=== PATIENT | male | born 1940 | race Caucasian/White ===

== ENCOUNTER 2019-01-15 14:20 | Emergency (ER) | payer OTHER ==
[2019-01-15 17:55] LABS: Potassium 3.7 mmol/L (3.5-5.1)
[2019-01-15 18:17] LABS: Urine Blood 3+ (NEG); Urine Glucose 2+ (NEG); Urine Protein 2+ (NEG); Urine pH 7.5 (5.0-7.0)
[2019-01-15] MEDS ORDERED: cloNIDine HCL 0.1 MG TAB ONE (18:24)
--- NOTE | 2019-01-15 19:31 | ER ---
Nurse's Notes [facility] Name: Pb Hicks Jr Age: 78 yrs Sex: Male : 1940 Arrival Date: 01/15/2019 Time: 14:23 Bed 20 Private MD: Diagnosis: Hematuria;Renal Insufficiency Presentation: 01/15 14:37 Presenting complaint: Patient states: 'I had a sonogram of my kidney and the noticed I aj1 can't empty my bladder and my urine is backing up into my kidneys. Dr. Whitman did blood work and my numbers kept going up, so he told me to come to the emergency room to have a catheter put in" Dr. Whitman spoke with ER staff via telephone and stated that he would like to be called and updated prior to patient's discharge. Transition of care: patient was not received from another setting of care. Onset of symptoms was January 15, 2019. Risk Assessment: Do you want to hurt yourself or someone else? Patient reports no desire to harm self or others. Initial Sepsis Screen: Does the patient meet any 2 criteria? No. Patient's initial sepsis screen is negative. Does the patient have a suspected source of infection? No. Patient's initial sepsis screen is negative. Care prior to arrival: None. 14:37 Method Of Arrival: Ambulatory [facility] 14:37 Acuity: SHAYLEE 3 aj1 Triage Assessment: 14:41 General: Appears in no apparent distress. uncomfortable, Behavior is calm, cooperative, aj1 appropriate for age. Pain: Denies pain. Neuro: Level of Consciousness is awake, alert, obeys commands. Cardiovascular: Patient's skin is warm and dry. Historical: - Allergies: 14:41 No Known Allergies; aj1 - PMHx: 14:41 CVA; Diabetes - NIDDM; enlarged prostate; Hypertension; Kidney stones; aj1 - Immunization history:: Flu vaccine is up to date. - Social history:: Smoking status: Patient/guardian denies using tobacco. - Ebola Screening: : Patient denies travel to an Ebola-affected area in the 21 days before illness onset. Screenin:10 Abuse screen: Denies threats or abuse. Denies injuries from another. Nutritional wh screening: No deficits noted. Tuberculosis screening: No symptoms or risk factors identified. Fall Risk None identified. Assessment: 15:00 General: Appears in no apparent distress. Behavior is calm, cooperative, appropriate wh for age. Pain: Denies pain. Neuro: Level of Consciousness is awake, alert, obeys commands, Oriented to person, place, time, situation, Appropriate for age. Cardiovascular: Heart tones S1 S2. Respiratory: Airway is patent Respiratory effort is even, unlabored, Respiratory pattern is regular, symmetrical, Breath sounds are clear bilaterally. GI: Abdomen is flat, non-distended. : Reports inability to void. EENT: No signs and/or symptoms were reported regarding the EENT system. Derm: Skin is intact, is healthy with good turgor, Skin is pink, warm \\T\\ dry. normal. Musculoskeletal: Circulation, motion, and sensation intact. 16:20 Reassessment: Patient appears in no apparent distress at this time. No changes from previously documented assessment. Patient and/or family updated on plan of care and expected duration. Pain level reassessed. Patient is alert, oriented x 3, equal unlabored respirations, skin warm/dry/pink. 17:30 Reassessment: Patient appears in no apparent distress at this time. No changes from previously documented assessment. Patient and/or family updated on plan of care and expected duration. Pain level reassessed. Patient is alert, oriented x 3, equal unlabored respirations, skin warm/dry/pink. 18:45 Reassessment: Patient appears in no apparent distress at this time. No changes from previously documented assessment. Patient and/or family updated on plan of care and expected duration. Pain level reassessed. Patient is alert, oriented x 3, equal unlabored respirations, skin warm/dry/pink. 19:20 Reassessment: Patient appears in no apparent distress at this time. Patient and/or cc3 family updated on plan of care and expected duration. Pain level reassessed. Patient is alert, oriented x 3, equal unlabored respirations, skin warm/dry/pink. Received this male patient from morning shift [facility] [employer]. With IV cannula gauge 20 at the right ACV saline locked. Noted with coude catheter Fr. 16 attached to urine drainage bag with bloody 600 mL urine output. Patient denies pain at this time. Patient states feeling better. Patient states symptoms have improved. General: Appears in no apparent distress. comfortable, Behavior is calm, cooperative, appropriate for age. Pain: Denies pain. Neuro: Level of Consciousness is awake, alert, obeys commands, Oriented to person, place, time, situation, Appropriate for age. Cardiovascular: Denies chest pain, Heart tones S1 S2 present Capillary refill < 3 seconds in bilateral fingers Patient's skin is warm and dry. Respiratory: Airway is patent Respiratory effort is even, unlabored, Respiratory pattern is regular, symmetrical, Breath sounds are clear bilaterally. GI: Abdomen is flat, non-distended, Bowel sounds present X 4 quads. : coude catheter Fr. 16 with bloody urine output Urine is patito blood, Genitalia appear normal. EENT: No signs and/or symptoms were reported regarding the EENT system. Derm: Skin is intact, is healthy with good turgor, Skin is pink, warm \\T\\ dry. normal. Musculoskeletal: Circulation, motion, and sensation intact. Range of motion: intact in all extremities. 20:00 Reassessment: Patient appears in no apparent distress at this time. Patient and/or cc3 family updated on plan of care and expected duration. Pain level reassessed. Patient is alert, oriented x 3, equal unlabored respirations, skin warm/dry/pink. SOLITARIO Nunes discharged the patient home with lab workup request to be done as outpatient. SOLITARIO Nunes said to discharge the patient home with the urine grijalva's catheter on, changed the urine bag to a drainage leg bag and taught the patient and his on how to drain urine from there. IV cannula removed and patient left ER vitally stable and ambulatory with his . No valuables left in the patient's room. Patient denies pain at this time. Patient states feeling better. Patient states symptoms have improved. Vital Signs: 14:41 BP 157 / 85; Pulse 73; Resp 18; Temp 98.4; Pulse Ox 97% on R/A; Weight 86.18 kg (R); aj1 Height 5 ft. 11 in. (180.34 cm) (R); Pain 0/10; 15:00 BP 137 / 95; Pulse 79; Resp 18; Temp 98.1(O); Pulse Ox 100% on R/A; mh5 17:00 BP 170 / 89; Pulse 69; Resp 18; Pulse Ox 99% on R/A; mh5 18:01 BP 216 / 106; Pulse 63; Resp 17; Temp 98.7(O); Pulse Ox 98% on R/A; mh5 18:53 BP 187 / 89; Pulse 61; Resp 17; Temp 98.2(O); Pulse Ox 100% ; mh5 19:30 BP 143 / 89; Pulse 67; Resp 16 S; Temp 98.7(O); Pulse Ox 96% on R/A; Pain 0/10; cc3 14:41 Body Mass Index 26.50 (86.18 kg, 180.34 cm) aj1 ED Course: 14:23 Patient arrived in ED. as 14:40 Triage completed. aj1 14:41 Arm band placed on Patient placed in waiting room, Patient notified of wait time. aj1 15:24 rBandon Saldivar FNP-C is PHCP. la 15:25 Pancho Newton MD is Attending Physician. la1 16:13 BLADDER SCANNER READS 999 ML. 5 16:14 Patient has correct armband on for positive identification. Placed in gown. Bed in low mh5 position. Call light in reach. Side rails up X 1. Adult w/ patient. Warm blanket given. Pulse ox on. NIBP on. 16:20 Coud inserted, using sterile technique, 16 Fr. Returned clear yellow urine. To gravity drainage. 16:32 Promise Olson is Primary Nurse. 16:45 Inserted saline lock: 20 gauge in right antecubital area, using aseptic technique. Blood collected. 18:12 PHCP role handed off by Brandon Saldivar FNP-C [facility] 18:12 Kei Nunes PA is PHCP. [facility] 20:00 No provider procedures requiring assistance completed. IV discontinued, intact, cc3 bleeding controlled, No redness/swelling at site. Pressure dressing applied. Administered Medications: 18:25 Drug: cloNIDine 0.1 mg Route: PO; 19:30 Follow up: Response: No adverse reaction; Blood pressure is lowered cc3 Outcome: 19:31 Discharge ordered by . [facility] 20:00 Discharged to home ambulatory, with family. cc3 20:00 Condition: stable 20:00 Discharge instructions given to patient, family, Instructed on discharge instructions, follow up and referral plans. Demonstrated understanding of instructions, follow-up care. 20:11 Patient left the ED. cc3 Signatures: Brenda French RN RN aj1 Kei Nunes PA PA jmm Martinez, Brandon Means, ADDING MACHINE OPERATOR-C ADDING MACHINE OPERATOR-Cla1 Alma Rosa Hendrix [facility] Promise Olson Charlene cc3
--- NOTE | 2019-01-15 19:32 | EDPHYS ---
Physician Documentation [facility] Name: Pb Hicks Jr Age: 78 yrs Sex: Male : 1940 Arrival Date: 01/15/2019 Time: 14:23 Bed 20 Private MD: ED Physician Pancho Newton HPI: 01/15 15:41 This 78 yrs old Male presents to ER via Ambulatory with complaints of Needs la1 Urinary Catheter Replacement. 15:41 Onset: The symptoms/episode began/occurred 1 day(s) ago. Associated signs and symptoms: la1 Pertinent negatives: abdominal pain, chest pain, sore throat, vomiting. Modifying factors: The patient symptoms are alleviated by nothing, the patient symptoms are aggravated by nothing. The patient has been recently seen by a physician: Dr. Whitman. Pt was seen at Dr. perkins for labs, has had an elevated creatinine, had an US of the kidneys and they told him his bladder was full and he needed to empty his bladder and then come back in the room, Pt urinated but still had urine in bladder per US tech. Cr is worse with Dr. alcazar who called and requested pt have catheter placed and is contacted after placement. Historical: - Allergies: 14:41 No Known Allergies; aj1 - PMHx: 14:41 CVA; Diabetes - NIDDM; enlarged prostate; Hypertension; Kidney stones; aj1 - Immunization history:: Flu vaccine is up to date. - Social history:: Smoking status: Patient/guardian denies using tobacco. - Ebola Screening: : Patient denies travel to an Ebola-affected area in the 21 days before illness onset. ROS: 15:46 Constitutional: Negative for fever, chills, and weight loss, Neck: Negative for injury, la1 pain, and swelling, Cardiovascular: Negative for chest pain, palpitations, and edema, Respiratory: Negative for shortness of breath, cough, wheezing, and pleuritic chest pain, Abdomen/GI: Negative for abdominal pain, nausea, vomiting, diarrhea, and constipation, : Negative for injury, bleeding, discharge, and swelling, MS/Extremity: Negative for injury and deformity, Neuro: Negative for headache, weakness, numbness, tingling, and seizure. Exam: 15:47 Constitutional: This is a well developed, well nourished patient who is awake, alert, la1 and in no acute distress. Head/Face: Normocephalic, atraumatic. Eyes: Pupils equal round and reactive to light, extra-ocular motions intact. Chest/axilla: Normal chest wall appearance and motion. Nontender with no deformity. No lesions are appreciated. Cardiovascular: Regular rate and rhythm with a normal S1 and S2. No gallops, murmurs, or rubs. Normal PMI, no JVD. No pulse deficits. Respiratory: Lungs have equal breath sounds bilaterally, clear to auscultation No rales, rhonchi or wheezes noted. No increased work of breathing, no retractions or nasal flaring. Abdomen/GI: Soft, non-tender, with normal bowel sounds. Mild abdominal distension. No guarding or rebound. No evidence of tenderness throughout. Vital Signs: 14:41 BP 157 / 85; Pulse 73; Resp 18; Temp 98.4; Pulse Ox 97% on R/A; Weight 86.18 kg (R); aj1 Height 5 ft. 11 in. (180.34 cm) (R); Pain 0/10; 15:00 BP 137 / 95; Pulse 79; Resp 18; Temp 98.1(O); Pulse Ox 100% on R/A; mh5 17:00 BP 170 / 89; Pulse 69; Resp 18; Pulse Ox 99% on R/A; mh5 18:01 BP 216 / 106; Pulse 63; Resp 17; Temp 98.7(O); Pulse Ox 98% on R/A; mh5 18:53 BP 187 / 89; Pulse 61; Resp 17; Temp 98.2(O); Pulse Ox 100% ; mh5 19:30 BP 143 / 89; Pulse 67; Resp 16 S; Temp 98.7(O); Pulse Ox 96% on R/A; Pain 0/10; cc3 14:41 Body Mass Index 26.50 (86.18 kg, 180.34 cm) aj1 MDM: 15:25 Patient medically screened. la1 19:29 Data reviewed: vital signs, nurses notes. Counseling: I had a detailed discussion with jamie the patient and/or guardian regarding: the historical points, exam findings, and any diagnostic results supporting the discharge/admit diagnosis, the need for outpatient follow up, to return to the emergency department if symptoms worsen or persist or if there are any questions or concerns that arise at home. ED course: Blood pressure tending down. I discussed VS with Dr. Whitman. patient will follow up with urology tomorrow. Will draw chem 7 in the morning prior to outpatient visit. . 01/15 16:40 Order name: BMP; Complete Time: 18:13 la1 01/15 18:13 Order name: Urine Dipstick--Ancillary (enter results); Complete Time: 18:18 bd 01/15 15:34 Order name: Bladder Scanner; Complete Time: 16:33 la1 01/15 15:34 Order name: Alfaro: after bladder scan; Complete Time: 16:33 la1 Administered Medications: 18:25 Drug: cloNIDine 0.1 mg Route: PO; 19:30 Follow up: Response: No adverse reaction; Blood pressure is lowered cc3 Disposition: 19:29 Chart complete. Chart complete. [facility] Disposition: 01/15/19 19:31 Discharged to Home. Impression: Hematuria, Renal Insufficiency. - Condition is Stable. - Discharge Instructions: Hematuria, Adult. - Medication Reconciliation Form, Thank You Letter, Antibiotic Education, Prescription Opioid Use form. - Follow up: Private Physician; When: Tomorrow; Reason: Recheck today's complaints, Continuance of care, Re-evaluation by your physician. Addendum: 01/17/2019 06:16 Co-signature as Attending Physician, Pancho Newton MD. r n Signatures: Dispatcher [employer] EDMS Brenda French RN RN aj1 Kei Nunes PA PA [facility] Pancho Newton MD MD rn Attema, Lee, LEARNING AND DEVELOPMENT ANALYST-C LEARNING AND DEVELOPMENT ANALYST-Cla1 Promise Olson Charlene cc3 Corrections: (The following items were deleted from the chart) 01/15 16:23 15:47 Constitutional: This is a well developed, well nourished patient who is awake, la1 alert, and in no acute distress. Head/Face: Normocephalic, atraumatic. Eyes: Pupils equal round and reactive to light, extra-ocular motions intact. Chest/axilla: Normal chest wall appearance and motion. Nontender with no deformity. No lesions are appreciated. Cardiovascular: Regular rate and rhythm with a normal S1 and S2. No gallops, murmurs, or rubs. Normal PMI, no JVD. No pulse deficits. Respiratory: Lungs have equal breath sounds bilaterally, clear to auscultation No rales, rhonchi or wheezes noted. No increased work of breathing, no retractions or nasal flaring. Abdomen/GI: Soft, non-tender, with normal bowel sounds. No distension or tympany. No guarding or rebound. No evidence of tenderness throughout. la1 20:11 19:31 01/15/2019 19:31 Discharged to Home. Impression: Hematuria; Renal Insufficiency. cc3 Condition is Stable. Forms are Medication Reconciliation Form, Thank You Letter, Antibiotic Education, Prescription Opioid Use. Follow up: Private Physician; When: Tomorrow; Reason: Recheck today's complaints, Continuance of care, Re-evaluation by your physician. jamie
[2019-01-15 20:23] VITALS: BP 187/89; TEMP 98.2; O2SAT 100
== END 2019-01-15 20:11 | disposition home or self-care (01) ==
LOC: ER 14:20
PROC: 0T9B70Z Drainage of Bladder with Drainage Device, Via Natural or Artificial Opening (ICD-10-PCS; principal; 2019-01-15)
DX: N28.9 Disorder of kidney and ureter, unspecified (principal); R31.9 Hematuria, unspecified
CPT/HCPCS: 36415; 80048; 81003; 99284

== ENCOUNTER 2019-02-25 18:45 | Emergency (ER) | payer OTHER ==
[2019-02-25 19:31] LABS: Absolute Lymphocytes (CBC) 1.4 K/uL (0.7-4.9); Basophils % 0.7 % (0-1.3); Hematocrit 36.4 % (39.6-49.0); Lymphocytes % 21.9 % (15.3-44.8); RBC Red Blood Cell Count 4.04 M/uL (4.33-5.43)
[2019-02-25 19:51] LABS: ALT/SGPT 44 U/L (12-78); AST/SGOT 74 U/L (15-37); Albumin 3.1 g/dL (3.4-5.0); Alkaline Phosphatase 87 U/L (45-117); BUN Blood Urea Nitrogen 30 mg/dL (7-18); Bicarbonate 23 mmol/L (21-32); Bilirubin Direct 0.1 mg/dL (0-0.2); Bilirubin Total 0.4 mg/dL (0.2-1.0); Glucose Level 188 mg/dL (74-106); Lipase 184 U/L (73-393); Potassium 4.1 mmol/L (3.5-5.1); Protein, Total 7.3 g/dL (6.4-8.2); Sodium Level 143 mmol/L (136-145); Troponin (Emerg Dept Use Only) < 0.02 ng/mL (0.0-0.045)
--- NOTE | 2019-02-25 20:04 | RAD REPORT ---
EXAM DESCRIPTION: RAD - Chest Single View - 02/25/2019 7:36 pm CLINICAL HISTORY: Dyspnea COMPARISON: December 2015 TECHNIQUE: AP portable chest image was obtained 1933 hours . FINDINGS: Lungs are clear. Heart and vasculature are normal. No measurable pleural effusion and no p neumothorax. No acute bony abnormality seen. No acute aortic findings suspected. IMPRESSION: No acute cardiopulmonary process. No significant interval change.
--- NOTE | 2019-02-25 20:19 | RAD REPORT ---
EXAM DESCRIPTION: CT - Abdomen Pelvis Wo Contrast - 02/25/2019 8:06 pm CLINICAL HISTORY: ABD PAIN COMPARISON: Renal Ultrasound-Complete dated 01/08/2019 TECHNIQUE: Axial [address] imaging of the abdomen and pelvis was performed without IV contrast. No IV contrast was given because of allergy, abnormal renal function, patient refusal or physician re quest. No oral contrast given. All CT scans are performed using dose optimization technique as appropriate and may include automated exposure control or mA/KV adjustment according to patient size. FINDINGS: No suspicious findings in the lung bases. The liver, spleen and pancreas show no suspicious findings on non-contrast imaging. Cholecystectomy c lips are present. No biliary tree dilatation. Moderate severity dilatation of the bilateral pelvis and calices present. This dilatation matches the December ultrasound study. No significant adrenal finding. Isodense renal masses and pyelonephritis cannot be excluded in the absence of IV contrast. In the upper pole of the right kidney there is an 1 8 millimeter area of increased density. Calcifications are present along the superior margin. No hydr oureter is present. Urinary bladder is only partially filled. There is thickened, irregular urinary b ladder wall. An enlarged lobulated prostate is present. Lobulation or mass density near the trigone c ould be enlarged prostate projecting into the bladder base, prostate mass or a bladder base mass. No dilated bowel loops or bowel wall thickening. No acute GI process seen. Stomach is distended by re tained fluid. Gastric outlet obstruction is not suspected. Colon anastomotic site shows no suspicious finding. No mass or bulky lymphadenopathy. A large fat only left inguinal hernia is present. Disc and bony degenerative changes are present. No acute bone finding. IMPRESSION: Stomach is distended by fluid without gastric outlet obstruction or mass seen. This may be an nonspecific gastroenteritis and gastro paresis. No dilated large or small bowel. No acute small bowel or colon finding. Moderate severity bilateral hydronephrosis of the pelvis and calices without hydroureter. This patter n is similar to comparison. Thickened irregular urinary bladder crump. This could be from cystitis, prostatic urethral outlet obs truction or less likely bladder wall mass. There is lobulated contour to the superior margin of the prostate projecting into the bladder base. B enign hypertrophy, prostate mass or even bladder base trigone mass would be possible. Pattern is not substantially different from December. Correlation with cystoscopy may be helpful if not already perf ormed. An 18 millimeter rounded hyperdense area upper pole right kidney could be a complex cyst. Mass is not excluded but probably lesser in likelihood. Follow-up outpatient contrast CT imaging of the kidneys could be performed if contrast is tolerable by the patient. Full assessment is limited is the absence of IV contrast.
[2019-02-25] MEDS ORDERED: NA CHLORIDE 0.9% 1,000 ML ONE (20:34)
--- NOTE | 2019-02-25 20:53 | EDPHYS ---
Physician Documentation [facility] Name: Pb Hicks Jr Age: 78 yrs Sex: Male : 1940 Arrival Date: 02/25/2019 Time: 18:46 Bed 4 Private MD: ED Physician Gerard Hernández HPI: 02/25 20:04 This 78 yrs old Male presents to ER via Wheelchair with complaints of jr8 Abdominal Pain/ Shortness of breath. 20:04 The patient presents with abdominal pain in the upper abdomen. Onset: The jr8 symptoms/episode began/occurred acutely, today. The symptoms do not radiate. Associated signs and symptoms: Pertinent positives: shortness of breath. The symptoms are described as dull, vague. Modifying factors: The symptoms are alleviated by nothing, the symptoms are aggravated by nothing. Severity of pain: At its worst the pain was moderate in the emergency department the pain has resolved. The patient has not experienced similar symptoms in the past. The patient has not recently seen a physician. Patient stated that shortly after having some shrimp tonight. Started to feel acute bloated and in digested. Stated that it was causing him to be short of breath. By the time he arrived to ED was feeling better. Historical: - Home Meds: 18:59 enalapril-hydrochlorothiazide 10-25 mg Oral tab once daily [Active]; Plavix 75 mg Oral mg2 tab 1 tab once daily [Active]; - PMHx: 18:59 CVA; Diabetes - NIDDM; enlarged prostate; Hypertension; Kidney stones; mg2 - PSHx: 18:59 Cholecystectomy; Angioplasty; laparoscopic esophageal fundoplasty; perforated colon; mg2 - Immunization history:: Flu vaccine is up to date. - Social history:: Smoking status: Patient/guardian denies using tobacco, Patient/guardian denies using alcohol, street drugs, IV drugs. - Ebola Screening: : No symptoms or risks identified at this time. ROS: 20:08 Eyes: Negative for injury, pain, redness, and discharge, ENT: Negative for injury, jr8 pain, and discharge, Neck: Negative for injury, pain, and swelling, Cardiovascular: Negative for chest pain, palpitations, and edema, Back: Negative for injury and pain, MS/Extremity: Negative for injury and deformity, Skin: Negative for injury, rash, and discoloration, Neuro: Negative for headache, weakness, numbness, tingling, and seizure. 20:08 Respiratory: Positive for shortness of breath. 20:08 Abdomen/GI: Positive for abdominal pain, abdominal distension, Negative for nausea, vomiting, and diarrhea. Exam: 20:08 Eyes: Pupils equal round and reactive to light, extra-ocular motions intact. Lids and jr8 lashes normal. Conjunctiva and sclera are non-icteric and not injected. Cornea within normal limits. Periorbital areas with no swelling, redness, or edema. ENT: Nares patent. No nasal discharge, no septal abnormalities noted. Tympanic membranes are normal and external auditory canals are clear. Oropharynx with no redness, swelling, or masses, exudates, or evidence of obstruction, uvula midline. Mucous membranes moist. Neck: Trachea midline, no thyromegaly or masses palpated, and no cervical lymphadenopathy. Supple, full range of motion without nuchal rigidity, or vertebral point tenderness. No Meningismus. Cardiovascular: Regular rate and rhythm with a normal S1 and S2. No gallops, murmurs, or rubs. Normal PMI, no JVD. No pulse deficits. Respiratory: Lungs have equal breath sounds bilaterally, clear to auscultation and percussion. No rales, rhonchi or wheezes noted. No increased work of breathing, no retractions or nasal flaring. Abdomen/GI: Soft, non-tender, with normal bowel sounds. No distension or tympany. No guarding or rebound. No evidence of tenderness throughout. Back: No spinal tenderness. No costovertebral tenderness. Full range of motion. Skin: Warm, dry with normal turgor. Normal color with no rashes, no lesions, and no evidence of cellulitis. MS/ Extremity: Pulses equal, no cyanosis. Neurovascular intact. Full, normal range of motion. Neuro: Awake and alert, GCS 15, oriented to person, place, time, and situation. Cranial nerves II-XII grossly intact. Motor strength 5/5 in all extremities. Sensory grossly intact. Cerebellar exam normal. Normal gait. Vital Signs: 18:56 BP 160 / 84; Pulse 78; Resp 18; Temp 98.3; Pulse Ox 96% on R/A; Weight 79.38 kg; Height mg2 5 ft. 10 in. (177.80 cm); Pain 10/10; 19:26 BP 137 / 58; Pulse 74; Resp 18; Pulse Ox 98% on R/A; ea 20:39 BP 132 / 72; Pulse 78; Resp 18; Pulse Ox 100% ; ea 21:21 BP 140 / 68; Pulse 76; Resp 18; Pulse Ox 100% ; ea 18:56 Body Mass Index 25.11 (79.38 kg, 177.80 cm) mg2 MDM: 18:56 Patient medically screened. jr8 20:51 Data reviewed: vital signs, nurses notes, lab test result(s), EKG, radiologic studies, jr8 CT scan. Data interpreted: Pulse oximetry: on room air is 100 %. Interpretation: normal. Counseling: I had a detailed discussion with the patient and/or guardian regarding: the historical points, exam findings, and any diagnostic results supporting the discharge/admit diagnosis, lab results, radiology results, the need for outpatient follow up, a family practitioner, to return to the emergency department if symptoms worsen or persist or if there are any questions or concerns that arise at home. ED course: Patient with complete resolution of symptoms. Most likely indigestion with anxiety. No other acute findings at this time. Renal function stable for patient. Talked to Dr. Whitman and will f/u with him this week. Patient ready to go home at this time. Knows to come back if worse . 02/25 19:07 Order name: Basic Metabolic Panel; Complete Time: :52 02/25 19:07 Order name: CBC with Diff; Complete Time: :52 02/25 19:07 Order name: Creatinine for Radiology; Complete Time: :02/25 19:07 Order name: Hepatic Function; Complete Time: :52 02/25 19:07 Order name: Lipase; Complete Time: :52 02/25 19:07 Order name: Troponin (emerg Dept Use Only); Complete Time: :52 02/25 19:07 Order name: IV Saline Lock; Complete Time: :22 02/25 19:07 Order name: Labs collected and sent; Complete Time: :22 02/25 19:07 Order name: XRAY Chest (1 view); Complete Time: 20:10 02/25 19:07 Order name: EKG - Nurse/Tech; Complete Time: 19:07 jr8 02/25 19:28 Order name: Glucose, Ancillary Testing; Complete Time: 19:52 EDMS 02/25 19:53 Order name: CT Abd/Pelvis - Without Contrast; Complete Time: 20:38 jr8 Administered Medications: 20:39 Drug: NS 0.9% 1000 ml Route: IV; Rate: 1000 ml; Site: right antecubital; ea 21:10 Follow up: Response: No adverse reaction; IV Status: Completed infusion; IV Intake: ea 1000ml Disposition: 21:23 Co-signature as Attending Physician, Gerard Hernández MD. zach Disposition: 02/25/19 20:52 Discharged to Home. Impression: Upper abdominal pain, unspecified. - Condition is Stable. - Discharge Instructions: Abdominal Pain, Adult, Pain Without a Known Cause. - Medication Reconciliation Form, Thank You Letter, Antibiotic Education, Prescription Opioid Use form. - Follow up: Ricardo Whitman MD; When: 2 - 3 days; Reason: Recheck today's complaints, Continuance of care, Re-evaluation by your physician. - Problem is new. - Symptoms have improved. Signatures: Dispatcher [employer] EDMT Gerard Hernández MD MD pkl Bridger Bradshaw PA PA jr8 Xiomy Granado RN RN ea [place], Michele, RN RN mg2 Corrections: (The following items were deleted from the chart) 20:09 20:04 Patient stated that shortly after having some shrimp tonight. Started to feel jr8 acute bloated and in digested. Stated that it was causing him to be short of breath. By the time he arrived to ED was feeling better. jr8 21:22 20:52 02/25/2019 20:52 Discharged to Home. Impression: Upper abdominal pain, ea unspecified. Condition is Stable. Forms are Medication Reconciliation Form, Thank You Letter, Antibiotic Education, Prescription Opioid Use. Follow up: Ricardo Whitman; When: 2 - 3 days; Reason: Recheck today's complaints, Continuance of care, Re-evaluation by your physician. Problem is new. Symptoms have improved. jr8
--- NOTE | 2019-02-25 20:53 | ER ---
Nurse's Notes [facility] Name: Pb Hicks Jr Age: 78 yrs Sex: Male : 1940 Arrival Date: 02/25/2019 Time: 18:46 Bed 4 Private MD: Diagnosis: Upper abdominal pain, unspecified Presentation: 02/25 18:55 Presenting complaint: Patient states: 10 min [employer] my abdomen was hurting so bad. feels mg2 like it's exploding. Transition of care: patient was not received from another setting of care. Onset of symptoms was February 25, 2019. Risk Assessment: Do you want to hurt yourself or someone else? Patient reports no desire to harm self or others. Initial Sepsis Screen: Does the patient meet any 2 criteria? No. Patient's initial sepsis screen is negative. Does the patient have a suspected source of infection? No. Patient's initial sepsis screen is negative. Care prior to arrival: None. 18:55 Method Of Arrival: Wheelchair mg2 18:55 Acuity: SHAYLEE 2 mg2 Triage Assessment: 19:19 General: Appears uncomfortable, Behavior is calm, cooperative, appropriate for age. ea Pain: Complains of pain in abdomen. Neuro: Level of Consciousness is awake, alert, obeys commands, Oriented to person, place, time, situation. Cardiovascular: Patient's skin is warm and dry. Respiratory: Airway is patent Respiratory effort is even, unlabored, Respiratory pattern is regular, symmetrical. Derm: Skin is pink, warm \T\ dry. Historical: - Home Meds: 18:59 enalapril-hydrochlorothiazide 10-25 mg Oral tab once daily [Active]; Plavix 75 mg Oral mg2 tab 1 tab once daily [Active]; - PMHx: 18:59 CVA; Diabetes - NIDDM; enlarged prostate; Hypertension; Kidney stones; mg2 - PSHx: 18:59 Cholecystectomy; Angioplasty; laparoscopic esophageal fundoplasty; perforated colon; mg2 - Immunization history:: Flu vaccine is up to date. - Social history:: Smoking status: Patient/guardian denies using tobacco, Patient/guardian denies using alcohol, street drugs, IV drugs. - Ebola Screening: : No symptoms or risks identified at this time. Screenin:18 Abuse screen: Denies threats or abuse. Nutritional screening: No deficits noted. ea Tuberculosis screening: No symptoms or risk factors identified. Fall Risk IV access (20 points). Assessment: 19:00 Reassessment: patient was crying in the weekend receptionist area, nasal bleeding noted in the mg2 right nares. controlled now. 19:19 Reassessment: see triage assessment. ea 20:39 Reassessment: Patient and/or family updated on plan of care and expected duration. Pain ea level reassessed. Patient is alert, oriented x 3, equal unlabored respirations, skin warm/dry/pink. 21:17 Reassessment: Patient and/or family updated on plan of care and expected duration. Pain ea level reassessed. Patient is alert, oriented x 3, equal unlabored respirations, skin warm/dry/pink. Discharge instruction given to patient, verbalized the understanding of instruction. Pt left ED ambulatory accompanied by family tolerating well. Vital Signs: 18:56 BP 160 / 84; Pulse 78; Resp 18; Temp 98.3; Pulse Ox 96% on R/A; Weight 79.38 kg; Height mg2 5 ft. 10 in. (177.80 cm); Pain 10/10; 19:26 BP 137 / 58; Pulse 74; Resp 18; Pulse Ox 98% on R/A; ea 20:39 BP 132 / 72; Pulse 78; Resp 18; Pulse Ox 100% ; ea 21:21 BP 140 / 68; Pulse 76; Resp 18; Pulse Ox 100% ; ea 18:56 Body Mass Index 25.11 (79.38 kg, 177.80 cm) mg2 ED Course: 18:46 Patient arrived in ED. mr 18:50 Bridger Bradshaw PA is PHCP. jr8 18:51 Gerard Hernández MD is Attending Physician. jr8 18:56 Triage completed. mg2 18:59 Arm band placed on. mg2 19:11 Xiomy Granado, MARIA ESTHER is Primary Nurse. ea 19:15 Inserted saline lock: 18 gauge in right antecubital area, using aseptic technique. ds4 Blood collected. 19:19 Patient has correct armband on for positive identification. Bed in low position. Call ea light in reach. 19:22 Lipase Sent. ds4 19:22 Hepatic Function Sent. ds4 19:22 Creatinine for Radiology Sent. ds4 19:22 CBC with Diff Sent. ds4 19:22 Basic Metabolic Panel Sent. ds4 19:22 Troponin (emerg Dept Use Only) Sent. ds4 19:36 XRAY Chest (1 view) In Process Unspecified. EDMS 20:[address] via stretcher. 20:07 CT Abd/Pelvis - Without Contrast In Process Unspecified. EDMS 20:52 Ricardo Whitman MD is Referral Physician. jr8 21:18 IV discontinued, intact, bleeding controlled, No redness/swelling at site. ea 21:21 No provider procedures requiring assistance completed. ea Administered Medications: 20:39 Drug: NS 0.9% 1000 ml Route: IV; Rate: 1000 ml; Site: right antecubital; ea 21:10 Follow up: Response: No adverse reaction; IV Status: Completed infusion; IV Intake: ea 1000ml Intake: 21:10 IV: 1000ml; Total: 1000ml. ea Outcome: 20:52 Discharge ordered by . jr8 21:16 Discharged to home via wheelchair, with significant other. ea 21:16 Condition: stable 21:16 Discharge instructions given to patient, Instructed on discharge instructions, follow up and referral plans. Demonstrated understanding of instructions, follow-up care. 21:22 Patient left the ED. ea Signatures: Dispatcher [employer] EDND TilleySaskia mr MoiseRicardo Bridger Bradshaw PA PA jr8 [place] Roman ds4 Xiomy Granado, RN RN Kishor Schultz RN RN mg2
[2019-02-25 22:38] VITALS: TEMP 98.3
[2019-02-25 22:40] VITALS: O2SAT 100
[2019-02-25 22:41] VITALS: BP 140/68
--- NOTE | 2019-02-26 20:57 | EKG ---
Test Date: 2019-02-25 Test Time: 18:54:39 [employer] Programmer: ERNIE MEASUREMENT RESULTS: Intervals: Rate: 68 WA: 172 QRSD: 78 QT: 388 QTc: 412 [place]: P: 68 WA: 172 QRS: 60 T: 70 INTERPRETIVE STATEMENTS: Normal sinus rhythm Nonspecific T wave abnormality Abnormal ECG Compared to ECG 12/17/2015 15:33:17 No significant changes Electronically Signed On 02-26-19 20:55:11 FLOOR SANDER by Breezy Mendiola
== END 2019-02-25 21:22 | disposition home or self-care (01) ==
LOC: ER 18:45
DX: R10.10 Upper abdominal pain, unspecified (principal)
CPT/HCPCS: 93005; 85025; 80048; 36415; 82947; 80076; 84484; 83690; 74176; 71045; 96360; 99284; J7030